=== PATIENT | male | born 1995 | race American Indian/Alaskan Native ===

== ENCOUNTER 2017-04-24 19:06 | Emergency (ER) | payer SELFPAY ==
[2017-04-24] MEDS ORDERED: TYLENOL ONE (19:25)
[2017-04-24] MEDS ORDERED: TYLENOL PO ONE (19:27)
[2017-04-24 19:29] VITALS: BP 146/85
== END 2017-04-25 03:25 | disposition left against medical advice (07) ==
LOC: ED 19:06
DX: M54.9 Dorsalgia, unspecified (principal); M54.2 Cervicalgia; Z53.21 Procedure and treatment not carried out due to patient leaving prior to being seen by health care provider

== ENCOUNTER 2019-04-01 07:57 | Emergency (ER) | payer OTHER ==
[2019-04-01 08:13] VITALS: BP 150/97
[2019-04-01] MEDS ORDERED: IBUPROFEN 800 MG TAB PO ONE (08:44)
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
== END 2019-04-01 11:14 | disposition home or self-care (01) ==
LOC: ED 07:57
DX: S16.1XXA Strain of muscle, fascia and tendon at neck level, initial encounter (principal); S00.03XA Contusion of scalp, initial encounter; S09.90XA Unspecified injury of head, initial encounter; F17.200 Nicotine dependence, unspecified, uncomplicated; V89.2XXA Person injured in unspecified motor-vehicle accident, traffic, initial encounter; Y93.89 Activity, other specified; Y92.89 Other specified places as the place of occurrence of the external cause; Y99.8 Other external cause status
CPT/HCPCS: 70450; 72125